=== PATIENT | male | born 1965 | race Caucasian/White ===

== ENCOUNTER 2017-03-26 07:43 | Emergency (ER) | payer BC, OTHER ==
[~2017-03-26] VITALS: Ht 182.9 cm; Wt 104.4 kg
[2017-03-26 07:46] VITALS: TEMP 36.7; Ht 182.9 cm; Wt 104.4 kg
[2017-03-26] MEDS ORDERED: SERT50TA PO (08:12)
[2017-03-26 08:51] LABS: BASO % 0.2 %; BASO ABS # 0.02 K/uL (0-0.2); COMPLETE YES; EOS % 1.8 %; HEMATOCRIT 43.6 % (42-52); IG% 0.5 %; LYMPH % 18.4 %; LYMPH ABS # 1.63 K/uL (1.2-3.4); MEAN CELL VOLUME 93.4 fL (80-100); MEAN CORPUSCULAR HEMOGLOBIN 30.4 pg (25-34); MEAN CORPUSCULAR HGB CONC 32.6 g/dl (32-36); MEAN PLATELET VOLUME 9.8 fL (7.4-10.4); MONO % 5.3 %; NEUT % 73.8 %; PLATELET COUNT 185 K/uL (130-400); RED BLOOD COUNT 4.67 M/uL (4.7-6.1); WHITE BLOOD COUNT 8.84 K/uL (4.8-10.8)
[2017-03-26 09:04] LABS: URINE APPEARANCE CLEAR (CLEAR); URINE BILIRUBIN NEG (NEG); URINE COLOR YELLOW; URINE NITRITE NEG (NEG); URINE SPECIFIC GRAVITY 1.021 (1.000-1.030); UROBILINOGEN NEG (NEG)
[2017-03-26 09:05] LABS: MANUAL MICROSCOPIC REQUIRED? NO; REVIEW REQ? NO
[2017-03-26 09:09] LABS: BUN/CREATININE RATIO 10.5 (10-20); CALCIUM 8.9 mg/dl (8.5-10.1); CREATININE 1.1 mg/dl (0.60-1.40); MAGNESIUM 2.5 mg/dl (1.8-2.4); POTASSIUM 4.2 mmol/L (3.5-5.1)
[2017-03-26 09:20] LABS: ACETAMINOPHEN < 2 ug/ml (10-30); ALB/GLOB RATIO 1.2 (0.9-2); THYROID STIMULATING HORMONE 2.29 uIu/ml (0.300-4.500)
[2017-03-26 09:22] LABS: BENZODIAZEPINE, URINE NEG (NEG); COCAINE,URINE NEG (NEG); PHENCYCLIDINE, URINE NEG (NEG)
[2017-03-26 10:23] LABS: LYME DISEASE AB IGG NEG (NEG)
[2017-03-26 10:24] LABS: LYME DISEASE AB IGM NEG (NEG)
[2017-03-26] MEDS ORDERED: LORAZEPAM 1 MG TAB PO STA (11:27)
[2017-03-26] MEDS ORDERED: ATV/1 PO (11:43)
[2017-03-26 11:59] VITALS: BP 130/81; PULSE 68; O2SAT 96
--- NOTE | 2017-03-26 12:19 | EMERGENCY ROOM VISIT NOTE ---
History First contact with patient: 07:50 Chief Complaint: ANXIETY Stated Complaint: ANXIETY/ SLEEPLESSNESS History of Present Illness The patient is a 51 year old male who presents to the Emergency Room with complaints of difficulty sleeping and increased stress worsening over the past few months. The patient is employed locally at one of the [employer]'s and has increased stressors at work. He states that the increased stress at work has started to carry over to his home life. Is able to complete his work responsibilities, however he feels that the stress and subsequent anxiety is interfering with the relationships in his life. He feels disconnected from his normal daily lifestyle. The patient has had some less severe symptoms in the past and previously had done well on Zoloft. He recently restarted this medication about 3 weeks ago, but has not had any improvement of symptoms with this. The patient has been losing weight as he has not been eating as normal. He typically sleeps 2 hours per night. He has difficulty concentrating on his home responsibilities. He is not suicidal or homicidal. He does not have chronic medical disease and considers himself otherwise usually healthy. He is accompanied today by his , who acknowledges that he has been worsening over the past one to 2 months. They did make arrangements to have a psychiatrist appointment in 5 days, however the patient continues to deteriorate to the point where he would like assessment sooner. The patient does not have other complaints. He denies drug or alcohol abuse. Review of Systems More than 10 systems were reviewed and otherwise negative with the exception of history of present illness. Past Medical/Surgical History Medical Problems: (1) CALCULUS OF KIDNEY (2) No Known Active Medical Problems (3) Vasectomy Family History No pertinent family history Social History Smoking Status: Never Smoker Alcohol Use: none Marital Status: Housing Status: lives with family Occupation Status: employed Current/Historical Medications Scheduled Sertraline (Zoloft), 50 MG PO DAILY Scheduled PRN Lorazepam (Ativan), 1 TAB PO Q6H PRN for Anxiety Physical Exam Vital Signs Date Time Temp Pulse Resp B/P (MAP) Pulse Ox O2 Delivery O2 Flow Rate FiO2 03/26/17 11:39 68 16 130/81 96 Room Air 03/26/17 07:46 36.7 55 18 145/85 96 Room Air Physical Exam VITALS: Vitals are noted on the nurse's note and reviewed by myself. Vital signs stable. GENERAL: Well-developed, well-nourished, white male, who is in no acute distress and resting comfortably. Patient is cooperative with the examination. HEAD: Normocephalic atraumatic. EARS: External ear normal. External auditory canals clear, tympanic membranes pearly emerson without erythema or effusion bilaterally. EYES: Pupils equal round and reactive to light and accommodation. Conjunctivae without injection, sclerae without icterus. Extraocular movements intact. NOSE: Patent, turbinates without inflammation or discharge. MOUTH: Mucous membranes moist. Tonsils are not enlarged. Pharynx without erythema, blood, or exudate. Uvula midline. Airway patent. NECK: Supple without nuchal rigidity. No lymphadenopathy. No thyromegaly. Cervical spine is nontender. HEART: Regular rate and rhythm without murmurs gallops or rubs. LUNGS: Clear to auscultation bilaterally without wheezes, rales or rhonchi. No retractions or accessory muscle use. ABDOMEN: Positive normal bowel sounds x 4. Soft, nontender, without masses or organomegaly. No guarding or rebound tenderness. MUSCULOSKELETAL: No muscle atrophy, erythema, or edema noted. Full range of motion without joint tenderness in all extremities. No tenderness to palpation. Normal gait. Strength 5/5 throughout. NEURO: Patient was alert and oriented to person place and time. CN II through XII grossly intact. Deep tendon reflexes 2+ throughout. No focal neurological deficits SKIN: The skin was without rashes, erythema, edema, or bruising. Capillary reflex less than 2 seconds. Medical Decision & Procedures Laboratory Results 03/26/17 08:36 Red Blood Count 4.67, Mean Corpuscular Volume 93.4, Mean Corpuscular Hemoglobin 30.4, Mean Corpuscular Hemoglobin Concent 32.6, Mean Platelet Volume 9.8, Neutrophils (%) (Auto) 73.8, Lymphocytes (%) (Auto) 18.4, Monocytes (%) (Auto) 5.3, Eosinophils (%) (Auto) 1.8, Basophils (%) (Auto) 0.2, Neutrophils # (Auto) 6.52, Lymphocytes # (Auto) 1.63, Monocytes # (Auto) 0.47, Eosinophils # (Auto) 0.16, Basophils # (Auto) 0.02 03/26/17 08:36 Test 03/26/17 00:00 03/26/17 08:36 Urine Color YELLOW Urine Appearance CLEAR (CLEAR) Urine pH 6.0 (4.5-7.5) Urine Specific [place] 1.021 (1.000-1.030) Urine Protein NEG (NEG) Urine Glucose (UA) NEG (NEG) Urine Ketones NEG (NEG) Urine Occult Blood NEG (NEG) Urine Nitrite NEG (NEG) Urine Bilirubin NEG (NEG) Urine Urobilinogen NEG (NEG) Urine Leukocyte Esterase NEG (NEG) Urine Opiates Screen NEG (NEG) Urine Methadone, Qualitative NEG (NEG) Urine Barbiturates NEG (NEG) Urine Phencyclidine (PCP) Level NEG (NEG) Ur Amphetamine/Methamphetamine NEG (NEG) MDMA (Ecstasy) Screen NEG (NEG) Urine Benzodiazepines Screen NEG (NEG) Urine Cocaine Metabolite NEG (NEG) Urine Marijuana (THC) NEG (NEG) White Blood Count 8.84 K/uL (4.8-10.8) Red Blood Count 4.67 M/uL (4.7-6.1) Hemoglobin 14.2 g/dL (14.0-18.0) Hematocrit 43.6 % (42-52) Mean Corpuscular Volume 93.4 fL (80-100) Mean Corpuscular Hemoglobin 30.4 pg (25-34) Mean Corpuscular Hemoglobin Concent 32.6 g/dl (32-36) Platelet Count 185 K/uL (130-400) Mean Platelet Volume 9.8 fL (7.4-10.4) Neutrophils (%) (Auto) 73.8 % Lymphocytes (%) (Auto) 18.4 % Monocytes (%) (Auto) 5.3 % Eosinophils (%) (Auto) 1.8 % Basophils (%) (Auto) 0.2 % Neutrophils # (Auto) 6.52 K/uL (1.4-6.5) Lymphocytes # (Auto) 1.63 K/uL (1.2-3.4) Monocytes # (Auto) 0.47 K/uL (0.11-0.59) Eosinophils # (Auto) 0.16 K/uL (0-0.5) Basophils # (Auto) 0.02 K/uL (0-0.2) RDW Standard Deviation 41.5 fL (36.4-46.3) RDW Coefficient of Variation 12.4 % (11.5-14.5) Immature Granulocyte % (Auto) 0.5 % Immature Granulocyte # (Auto) 0.04 K/uL (0.00-0.02) Anion Gap 4.0 mmol/L (3-11) Est Creatinine Clear Calc Drug Dose 101.5 ml/min Estimated GFR () 90.9 Estimated GFR (Non- 78.4 BUN/Creatinine Ratio 10.5 (10-20) Calcium Level 8.9 mg/dl (8.5-10.1) Magnesium Level 2.5 mg/dl (1.8-2.4) Total Bilirubin 0.8 mg/dl (0.2-1) Aspartate Amino Transf (AST/SGOT) 13 U/L (15-37) Alanine Aminotransferase (ALT/SGPT) 20 U/L (12-78) Alkaline Phosphatase 57 U/L (45-117) Total Protein 7.2 gm/dl (6.4-8.2) Albumin 4.0 gm/dl (3.4-5.0) Globulin 3.2 gm/dl (2.5-4.0) Albumin/Globulin Ratio 1.2 (0.9-2) Thyroid Stimulating Hormone (TSH) 2.290 uIu/ml (0.300-4.500) Free Thyroxine 0.94 ng/dl (0.80-1.60) Salicylates Level < 1.7 mg/dl (2.8-20) Acetaminophen Level < 2 ug/ml (10-30) Ethyl Alcohol mg/dL < 3.0 mg/dl (0-3) Lyme Disease IgG Antibody NEG (NEG) Lyme Disease IgM Antibody NEG (NEG) Monoscreen NEG (NEG) Medications Administered Medications (Trade) Dose Ordered Sig/Thais Route Start Time Stop Time Status Last Admin Dose Admin Lorazepam (Ativan Tab) 1 mg NOW STAT PO 03/26/17 11:27 03/26/17 11:28 DC 03/26/17 11:27 1 MG ED Course Physical exam and history were performed. Nursing notes, EMR, and Medication List were personally reviewed. Patient appears to have sleeplessness and increased stress at work. He does describe some anxiety-related symptoms. The patient appears well on examination and is without suicidal or homicidal ideation. He does consent to blood work and urine, which were collected. The patient's blood work is as above and was reviewed. He does not have a significantly elevated white blood cell count, gross anemia, bandemia, or significant electrolyte imbalance. Transaminases are nondiagnostic. TSH is euthyroid. Urine is without evidence of infection. Drug of abuse screen was negative. The repeat blood work was nondiagnostic. The patient was medically cleared at this time. I discussed the case with the psychiatric casework manager. Please see her documentation for specifics regarding her mental health evaluation. We agree the patient does not require 302 involuntary stay. He is quite reasonable and cooperative. We are in the process of establishing counseling/psychology services as an adjunct to his upcoming psychiatry visit. The patient will be treated here with a dose of Ativan as I feel this may significantly improve some of his symptoms. I will give him a very short prescription of this medication, which should be adequate to get him to his psychiatric visit. I did have a lengthy conversation with the patient and thoroughly invited him back to the ER should he have any deterioration of his symptoms. Again, the patient appears reasonable, and with good support network. He was pleased with this plan and I answered all of his questions. The patient was discharged home under the care of his . The chart was completed utilizing [employer] Voice Recognition Software. Grammatical errors, random word insertions, pronoun errors, and incomplete sentences are an occasional consequence of this system due to software limitations, ambient noise, and hardware issues. Any formal questions or concerns about the content, text, or information contained within the body of this dictation should be directly addressed to the provider for clarification. . Medical Decision Differential diagnosis: Etiologies such as mood disorder, infection, hypoglycemia, electrolyte abnormalities, cardiac sources, intracerebral event, toxicologic, neurologic, as well as others were entertained. Impression Primary Impression: Sleeplessness Departure Information Dispostion Home / Self-Care Condition GOOD Prescriptions Lorazepam (ATIVAN) 1 Mg Tab 1 TAB PO Q6H Y for Anxiety for 3 Days, #12 TAB Prov: Joel Munroe PA-C 03/26/17 Forms HOME CARE DOCUMENTATION FORM, Work Instructions, Additional Instructions: Patient was seen and evaluated today in the emergency department fo medical care. Return to work on 04/01/2017. Please excuse. IMPORTANT VISIT INFORMATION Patient Instructions [facility] Additional Instructions You were seen and evaluated today on an emergency basis only. This is not a substitute for, or an effort to provide, complete comprehensive medical care. It is not possible to recognize and treat all injuries or illnesses in a single emergency department visit. For this reason it is recommended that you followup with your provider on Friday for ongoing care and evaluation. Case management is attempting to provide additional resources. We will being contacted regarding the outcome of this. Drink plenty of fluids and remain well hydrated. You may use Ativan 1 mg every 6 hours as needed for any anxiety symptoms. This may also be used near bedtime to assist with sleep. This medication will make you tired. Please do not drink or drive while on this medication. You are welcome to return to the emergency department anytime with new, worsening, or concerning symptoms. Work Instructions Additional Work Instructions: Patient was seen and evaluated today in the emergency department for medical care. Return to work on 04/01/2017. Please excuse.
== END 2017-03-26 11:59 | disposition home or self-care (01) ==
LOC: C.EDB 07:45 → C.EDA 11:59
DX: G47.9 Sleep disorder, unspecified (principal); Z87.442 Personal history of urinary calculi; Z98.52 Vasectomy status; Z79.899 Other long term (current) drug therapy